=== PATIENT | male | born 2005 | race Caucasian/White ===

== ENCOUNTER 2023-03-07 15:19 | Emergency (ER) | payer OTHER ==
[~2023-03-07] VITALS: Ht 170.2 cm; Wt 98.2 kg
[2023-03-07 15:22] VITALS: TEMP 98.6
[2023-03-07 17:45] VITALS: BP 121/71; PULSE 84; RESP 17
[2023-03-07] MEDS ORDERED: TraMADol HCL 50 MG TABLET PO ONE (18:00)
[2023-03-07] MEDS ORDERED: TRAM-559 PO (19:43)
== END 2023-03-07 19:55 | disposition home or self-care (01) ==
LOC: EMS 15:26
DX: S20.20XA Contusion of thorax, unspecified, initial encounter (principal); S50.811A Abrasion of right forearm, initial encounter; V29.888A Rider (driver) (passenger) of other motorcycle injured in other specified transport accidents, initial encounter; Y93.89 Activity, other specified; Y92.89 Other specified places as the place of occurrence of the external cause; Y99.8 Other external cause status
CPT/HCPCS: 71101; 99283